=== PATIENT | male | born 1955 ===

== ENCOUNTER 2022-01-13 04:28 | Day surgery (SDC) | payer OTHER ==
[2022-01-12 14:22] VITALS: BMI 24.1
[2022-01-13] MEDS ORDERED: ACETAMINOPHEN INJECTION 100 ML IVPB ONE (15:47)
[2022-01-13] MEDS ORDERED: DEXMEDETOMIDINE HCL 200 MCG/2 ML IVPB ONE (15:47)
[2022-01-13] MEDS ORDERED: LIDOCAINE HCL 2% JELLY 10 ML CARTRIDGE ONE (15:48)
[2022-01-13] MEDS ORDERED: MIDAZOLAM HCL 2 MG/2 ML SINGLE DOSE VIAL ONE (15:50)
[2022-01-13] MEDS ORDERED: ceFAZolin SODIUM 1 GM VIAL IVPB ONE (16:00)
[2022-01-13] MEDS ORDERED: PROPOFOL 20 ML ONE ×2 (16:05)
[2022-01-13] MEDS ORDERED: LIDOCAINE HCL 2% JELLY 10 ML CARTRIDGE UR ONE (17:00)
[2022-01-13 20:01] VITALS: BP 123/78; PULSE 78; TEMP 98
[2022-01-20 10:12] LABS: CA OXALATE MONOHYDR. 90%; SIZE 9X5; WEIGHT 6090 MG
== END 2022-01-13 20:00 | disposition home or self-care (01) ==
LOC: JASU-SURG 04:28
PROVIDERS: ATTEND Urology
PROC: 0T7D8DZ Dilation of Urethra with Intraluminal Device, Via Natural or Artificial Opening Endoscopic (ICD-10-PCS; principal; 2022-01-13 15:00)
PROC: 0TCB8ZZ Extirpation of Matter from Bladder, Via Natural or Artificial Opening Endoscopic (ICD-10-PCS; 2022-01-13 15:00)
DX: N40.1 Benign prostatic hyperplasia with lower urinary tract symptoms (principal); R33.8 Other retention of urine; N21.0 Calculus in bladder; E11.9 Type 2 diabetes mellitus without complications; I10 Essential (primary) hypertension; Z79.4 Long term (current) use of insulin
CPT/HCPCS: 52318; C9740; L8699; 36415; 82360; 82962; 88300-TC; 94760